=== PATIENT | female | born 1985 | race Caucasian/White ===

== ENCOUNTER → 2021-03-26 09:45 | Outpatient (BNVA) | payer OTHER, SELFPAY | PROVIDERS: PCP Nurse Practitioner; Visit Provider Obstetrics & Gynecology | DX: N89.8 Other specified noninflammatory disorders of vagina (principal); Z30.9 Encounter for contraceptive management, unspecified; Z30.432 Encounter for removal of intrauterine contraceptive device | CPT/HCPCS: 87070; 87205; 87481; 87512; 87798; 87799 ==

== ENCOUNTER → 2021-10-25 13:36 | Outpatient (BNVA) | payer OTHER, SELFPAY | PROVIDERS: PCP Nurse Practitioner; Visit Provider Obstetrics & Gynecology | DX: Z34.90 Encounter for supervision of normal pregnancy, unspecified, unspecified trimester (principal) | CPT/HCPCS: 80307; 84315; 87086 ==

== ENCOUNTER 2022-07-31 08:22 | Outpatient (CLI) | payer OTHER, SELFPAY ==
--- NOTE | 2022-07-31 08:35 | MR_ITS ---
WS: [id number] MRI LUMBAR SPINE NONCONTRAST TECHNIQUE: Sagittal T1, T2 and STIR imaging. Axial T1 and T2 imaging. CLINICAL INFORMATION: LOW BACK PAIN COMPARISON: None. FINDINGS: Straightening of the normal cervical lordosis. Small central protrusion C5-C6 with slight contact of the cervical cord on the certified addiction counselor imaging. L1-L2: Normal. L2-L3: Normal. L3-L4: No significant disc bulging. Mild facet arthropathy. Spinal canal and foramen are patent. L4-L5: Mild annular bulging. Mild facet arthropathy. Eccentric disc bulging L4-L5 with slight contact of the exiting L4 nerve roots. Mild bilateral foraminal narrowing. Mild facet arthropathy. L5-S1: Mi ld annular bulging with tiny shallow central protrusion. Slight effacement of ventral thecal sac. Spi nal canal and foramen are patent. Mild facet arthropathy. Visualized pelvic bony structures: Normal. Paravertebral soft tissues: Normal. MR/MR lumbar spine wo con* [id number] IMPRESSION: 1. Mild lumbar curve. No acute compression. No high-grade central canal stenos is. 2. Mild eccentric disc bulging L4-L5 with osteophytic ridging slightly contact s the exiting L4 nerve roots bilaterally with mild bilateral foraminal narrowin g. 3. Mild annular bulging L5-S1 with a tiny shallow central protrusion. Spinal c anal and foramen are patent. 4. Mild facet arthropathy L4-L5 and L5-S1. 5. Small central disc protrusion on the cervical spine certified addiction counselor imaging at C5-C6.
== END 2022-07-31 08:23 | disposition home or self-care (01) ==
PROVIDERS: PCP Nurse Practitioner; Visit Provider Nurse Practitioner
DX: M51.26 Other intervertebral disc displacement, lumbar region (principal); M47.816 Spondylosis without myelopathy or radiculopathy, lumbar region; M47.817 Spondylosis without myelopathy or radiculopathy, lumbosacral region; M50.222 Other cervical disc displacement at C5-C6 level
CPT/HCPCS: 72148

== ENCOUNTER → 2022-08-01 09:15 | Outpatient (BNVA) | payer OTHER, SELFPAY | PROVIDERS: PCP Nurse Practitioner; Visit Provider Obstetrics & Gynecology | DX: Z01.419 Encounter for gynecological examination (general) (routine) without abnormal findings (principal) | CPT/HCPCS: 87624 ==

== ENCOUNTER → 2022-08-11 12:25 | Outpatient (BNVA) | payer SELFPAY | PROVIDERS: PCP Nurse Practitioner; Visit Provider Obstetrics & Gynecology | DX: R10.2 Pelvic and perineal pain (principal) | CPT/HCPCS: 76830 ==

== ENCOUNTER 2022-09-16 09:48 | Observation (INO) | payer OTHER, SELFPAY ==
[2022-09-15 13:48] VITALS: BMI 25.0
[2022-09-16] VITALS (25 sets, daily range): BP systolic 104–129; BP diastolic 63–87; PULSE 62–104; RESP 13–23; TEMP 36.6–37.1; O2SAT 96–100
--- NOTE | 2022-09-16 06:51 | ANES.PREANE2 ---
Pre-Anesthetic Assessment Height/Weight: Height 1.65 m Weight 68.039 kg Temp Pulse Resp BP Pulse Ox O2 Del Method 98.7 F 78 18 104/66 100 09/16/22 06:15 09/16/22 06:15 09/16/22 06:15 09/16/22 06:15 09/16/22 06:15 09/16/22 06:15 Preop Diagnosis: pelvic pain, uterine prolapse Operation Date: 09/16/22 07:00 Proposed Procedures p Laparoscopic assisted vaginal hysterectomy, possible bilateral salpingo-oophorectomy 81584,N81.4,N80.9,R10.2(Not Applicable) - Alena Jackson MD s Laparoscopic Salpingo Oophorectomy(Bilateral) - Alena Jackson MD Familial anesthetic complications: None Was Beta Jovan taken within 24 hours: N/A Was Clonidine taken within 24 hours: N/A Last intake: Intake Last Liquid Date 09/16/22 Last Liquid Time 23:00 Last Solid Date 09/15/22 Last Solid Time 20:00 Social Tobacco and No alcohol Exam alert, oriented x 3, clear to auscultation bilaterally and regular rate & rhythm Airway Mallampati: Class II Dentition: full Musc/skel neck pain d/t disc issues - some UE numbness and tingling, started pregabalin Neuropsych Neuropathy Anesthetic Plan ASA status: 2 Risk of > 500 ml blood loss (7ml/kg in children): No Medications/Allergies Home Medications Medication Instructions Recorded Confirmed Last Taken Type trazodone 100 mg tablet 100 mg PO DAILY PRN Sleep 02/11/21 09/15/22 Unknown History melatonin 10 mg capsule 10 mg PO .h.s. 10/25/21 09/16/22 09/15/22 23:15 History pregabalin 75 mg capsule 75 mg PO BID 09/10/22 09/16/22 09/15/22 23:15 History Allergies Allergy/AdvReac Type Severity Reaction Status Date / Time haloperidol Allergy Unknown Verified 09/16/22 06:12 Penicillins Allergy Unknown Verified 09/16/22 06:12 [facility] Anesthesia Medical History Anxiety disorder Borderline personality disorder Bulging of cervical intervertebral disc Cervicalgia Depression Dysmenorrhea Insomnia Low back pain Migraine Nonscarring hair loss Post traumatic stress disorder (PTSD) Surgical History H/O adenoidectomy Hx of tonsillectomy Family History Sister Eating disorder bulimia Ovarian cyst Grandfather Cancer Maternal-- unsure but it spread throughout entire body Diabetes Maternal Brother Hypertension Mother Thyroid disease hypothyroidism Endometriosis Endometrial tumor Denies family history of CAD (coronary artery disease) Clotting disorder Heart disease Hyperlipidemia Chronic kidney disease (CKD) Anesthesia complication Bleeding disorder Stroke Social History Smoking and tobacco status: current every day smoker (1/2ppd) e-cigarettes E-Cigarette Details: vaporizer device and with nicotine Alcohol intake: never Data Anesthesia Cardiac Studies: No Data to Display
[2022-09-16] MEDS: gabapentin 300 mg Capsule PO (06:56)
[2022-09-16] MEDS: CELEcoxib 200 mg Capsule 400 MG PO (06:57)
[2022-09-16] MEDS: phenazopyridine 100 mg Tablet 200 MG PO (06:57)
--- NOTE | 2022-09-16 06:58 | W.PM.OPSUD ---
Surgery/Procedure H&P Update DATE OF PROCEDURE: September 16, 2022 DATE H&P PERFORMED: 09/10/22 H&P UPDATE INFORMATION: I have reviewed H&P completed within last 30 days, I have examined patient prior to procedure and No changes to prior documentation CHANGES TO PREVIOUS DOCUMENTATION: I have spoken with the patient and she desires to have both tubes and ovaries out. PREOP DIAGNOSIS: pelvic pain, uterine prolapse PLANNED PROCEDURE: Operation Date: 09/16/22 07:00 Proposed Procedures p Laparoscopic assisted vaginal hysterectomy, possible bilateral salpingo-oophorectomy 10554,N81.4,N80.9,R10.2(Not Applicable) - Alena Jackson MD s Laparoscopic Salpingo Oophorectomy(Bilateral) - Alena Jackson MD Related Problem List Diagnoses (1) Transfusion of blood product refused for jehovah's witness reason: (2) Pelvic pain: (3) Uterine prolapse:
[2022-09-16 07:01] LABS: Basophils # 0.1 10^3/uL (0.0-0.1); Basophils % 1.1 %; Eosinophils # 0.4 10^3/uL (0.0-0.8); Eosinophils % 5.2 %; Hematocrit 42.8 % (37.0-47.0); Hemoglobin 14.3 g/dL (11.5-15.3); Lymphocytes # 1.9 10^3/uL (0.8-4.8); Lymphocytes % 22.8 %; Mean Corpuscular HGB Conc 33.4 g/dL (30.0-36.0); Mean Corpuscular Hemoglobin 31.6 pg (28.0-34.0); Mean Corpuscular Volume 94.7 fl (81-99); Mean Platelet Volume 10.9 fL (7.4-10.4); Monocytes # 0.6 10^3/uL (0.2-0.9); Monocytes % 7.5 %; Neutrophils % 62.9 %; Nucleated Red Blood Cells % 0 %; Platelet Count 200 10^3/cmm (130-400); Red Blood Count 4.52 10^6/uL (4.1-5.3); Red Cell Distribution Width 12.7 % (12.1-15.1); White Blood Count 8.4 10^3/uL (4.0-10.0)
[2022-09-16] MEDS: acetaminophen 1,000 MG/100 ML PIGGYBACK 400 MG IV (07:04)
[2022-09-16] MEDS: scopolamine 1.5 Patch 1 PATCH TRANSDERMA (07:06)
[2022-09-16 07:08] LABS: OR HCG Qualitative Urine Negative (Negative)
[2022-09-16] MEDS: ceFAZolin 2,000 MG in sodium chloride 0.9% (plus) 50 ML 100 MG IV ×3 (07:13→22:53)
--- NOTE | 2022-09-16 07:46 | SUR.OPER ---
attempted to contact and notify him of surgical start
[2022-09-16] MEDS: vasopressin 20 unit/mL INJ INJECTION (07:52)
--- NOTE | 2022-09-16 09:18 | PM.OP ---
Operative Report Date of procedure: September 16, 2022 Pre-op diagnosis: Preop Diagnosis pelvic pain, uterine prolapse Post-op diagnosis: same Post-op findings: 9 week sized uterus, enlarged bilateral ovaries. R>L. Endometriosis present Procedure done: LAVH, BSO Specimens removed/disposition: uterus, tubes and ovaries to pathology Surgeon: Alena Jackson Anesthesia: General Estimated blood loss (mL): 50 IV fluids (mL): 1,500 Urine output (mL): 50 Complications: none Condition: stable Disposition: PACU Procedure: The patient was taken to the operating room where general anesthesia was administered and found to be adequate. She was prepped and draped in the normal sterile fashion in the dorsal lithotomy position in [facility]. A Navarro catheter was placed. A weighted speculum was placed into the vagina and the anterior lip of the cervix was grasped with a single tooth tenaculum. The Zumi uterine manipulator was placed. The weighted speculum was removed. The gloves were changed and attention was turned to the abdomen. A 5 mm supraumbilical incision was made. Using a 5 mm port with the camera, the port was placed into the abdomen. The abdomen was insufflated. Two low, lateral 5 mm ports were placed on the left and right under direct visualization from the camera. The right tube was grasped and elevated. Using the laparoscopic cautery, the infundibulopelvic ligament was cauterized inferior to the ovary and then continued inferior to the fallopian tube. This was performed the same way on the left. The uteroovarian ligaments as well as the round ligaments were ligated. Attention was then turned to the vaginal portion of the procedure. The weighted speculum was placed into the vagina. The zumi manipulator was removed. The single tooth tenaculum was removed and replaced with the dariela's tenaculum. 10 mL of dilute Pitressin was injected at the vesicovaginal junction. A circumferential incision was made at the vesicovaginal junction and the vaginal mucosa reflected cephalad. The posterior peritoneum was entered sharply with the Metzenbaum scissors and the long weighted speculum replaced. Using the Dafne clamps the uterosacral ligaments were clamped cut and suture-ligated. The anterior peritoneum was entered sharply with the metzenbaum scissors. Then sequentially the uterine arteries and cardinal ligaments were clamped cut and suture-ligated. A single-tooth tenaculum was used to deliver the uterus. The remaining segement of the utero-ovarian ligaments were clamped cut and suture-ligated bilaterally and the specimen was removed. There was good hemostasis with only mild bleeding from the cuff. The peritoneum was closed with a pursestring using 2-0 Vicryl. The vaginal cuff was closed with 0 Vicryl in a running locked pattern incorporating the uterosacral ligaments into the lateral aspects of the vaginal cuff. The Navarro catheter was removed and the cystoscope advanced into the bladder. The patient was given pyridium and bilateral spill was noted. There were no injuries or deficits noted in the bladder. The cystoscope was removed and the Navarro was replaced. Vaginal packing was placed for good hemostasis. The gloves and gowns were changed and attention was turned to the abdomen. The ports were closed with 2-0 monocryl with skin glue. The patient tolerated the procedure well. Sponge lap and needle counts were correct x3. She was taken to the recovery room in stable condition.
--- NOTE | 2022-09-16 09:28 | SUR.PHASEI ---
191 PT TO PACU 5 PT AWAKES TO VOICE BUT DOES NOT FOLLOW COMMANDS, PT REPOSTIONED SELF UP IN BED HOB AT 40 DEGREES GOOD RESP EFFORT ON RA
[2022-09-16] MEDS: HYDROmorphone 1 mg/mL INJ 1 mL 0.5 MG IVP (09:37)
--- NOTE | 2022-09-16 09:51 | SUR.PHASEI ---
0919 NOTE CONTINUED, PT MONITOR SR WITH NO ECTOPY NOTED IV TO RT HAND #20 WITH NS 350 ML UP AT KVO RATE PER GRAVITY, PT ABDOMEN SOFT TO PALPATION 3 SITES WITH SKIN GLUE , PT HAS VAGINAL PACKING AND ABHI PAD , PHILLIPS CATHETER , STATLOCK TO LT INNER THIGH WITH ORANGE URINE TO TUBING AND BAG APPROX 200 ML IN BAG NOT EMPTIED IN PACU. BILAT SCDS ON, ID BRACELET TO LT WRIST, PT IDENTIFIED WITH 2 IDENTIFIERS PT SATS ON RA 99% WITH NO DISTRESS.
--- NOTE | 2022-09-16 09:56 | SUR.PHASEI ---
0937 PT AWAKES AND LUIS ANTONIO OUT WITH PAIN PT STATES (IT HURTS , IT HURTS) SEE PAIN MED GIVEN PER DR QUIROS ORDERS TO GIVE DILAUDID FOR PAIN IN PACU PER PROTOCOL, DR BUSCH AT BEDSIDE PT SHOWN HER UTERUS AND OVARIES FROM SPECIMEN BUCKET PER DR MACKAY.
--- NOTE | 2022-09-16 09:58 | SUR.PHASEI ---
ABOVE ENTRY CORRECTION, SHOWN TO PT BY DR MACKAY
--- NOTE | 2022-09-16 10:44 | SUR.PHASEI ---
PT TO OB PER CART , PT MOVES SELF TO BED AWAKE ALERT TALKATIVE TO NURSE, HANDOFF AT BEDSIDE WITH OB RN. FAMILY UPDATED AND WAITING IN WAITING ROOM.
[2022-09-16] MEDS: dextrose 5%-lactated ringers 1,000 ML 125 ML IV ×2 (10:48→19:25)
[2022-09-16] MEDS: ketorolac 30 mg/mL INJ IVP ×3 (10:49→21:49)
[2022-09-16] MEDS: HYDROcodone-acetaminophen 5-325 mg Tablet PO ×3 (10:49→23:48)
[2022-09-16] MEDS: nicotine 14 mg Patch 1 PATCH TRANSDERMA (11:22)
[2022-09-16] MEDS: HYDROmorphone 1 mg/mL INJ 1 mL 1.5 MG IVP ×2 (12:56→17:48)
--- NOTE | 2022-09-16 13:15 | ANE.PACU2 ---
Inpatient post-anesthesia follow up: Airway intact: Yes Vital signs: Temperature 97.9 F Pulse Rate 89 Respiratory Rate 20 Blood Pressure 118/82 Pulse Oximetry 98 Oxygen Delivery Me thod Room Air Oxygen Flow Rate Fraction of Inspir ed Oxygen Hydration adequate: Yes Nausea and vomiting: No Pain level: 1 Mental status: Baseline
[2022-09-16] MEDS: ondansetron 2 mg/ML SDV 2 mL 4 MG IVP (13:24)
[2022-09-16 16:17] LABS: Anion Gap 14.4 (5-19); Blood Urea Nitrogen 10 mg/dL (6-20); Calcium 8.4 mg/dL (8.5-10.5); Carbon Dioxide 20 mmol/L (22-29); Chloride 108 mmol/L (98-107); Glomerular Filtration Rate 94.7 mL/min (90-130); Glucose 172 mg/dL (65-115); Osmolality Calculated 289 mOsm/kg (285-295); Potassium 4.4 mmol/L (3.5-5.1); Sodium 138 mmol/L (136-145)
[2022-09-16] MEDS: docusate sodium 100 mg Capsule PO (17:47)
[2022-09-16] MEDS: pregabalin 75 mg Capsule PO (19:25)
[2022-09-16] MEDS: trazodone 100 mg Tablet PO (23:41)
[2022-09-17] MEDS: dextrose 5%-lactated ringers 1,000 ML 125 ML IV (03:48)
[2022-09-17] MEDS: ketorolac 30 mg/mL INJ IVP (03:49)
--- NOTE | 2022-09-17 05:34 | PC.NURSE ---
Vaginal Packing out @0530 on 09/17/2022 with scant amount of blood.
[2022-09-17] MEDS: HYDROcodone-acetaminophen 5-325 mg Tablet PO (05:35)
[2022-09-17 05:48] VITALS: BP 82/51; PULSE 65; RESP 15; TEMP 36.8; O2SAT 99
[2022-09-17 05:53] LABS: Hematocrit 32.5 % (37.0-47.0); Mean Corpuscular HGB Conc 33.8 g/dL (30.0-36.0); Mean Corpuscular Hemoglobin 32.4 pg (28.0-34.0); Mean Corpuscular Volume 95.9 fl (81-99); Mean Platelet Volume 10.5 fL (7.4-10.4); Platelet Count 191 10^3/cmm (130-400); Red Blood Count 3.39 10^6/uL (4.1-5.3); Red Cell Distribution Width 12.7 % (12.1-15.1); White Blood Count 12.9 10^3/uL (4.0-10.0)
[2022-09-17 06:13] VITALS: BP 84/50
[2022-09-17 06:45] VITALS: BP 85/49
[2022-09-17] MEDS: docusate sodium 100 mg Capsule PO (08:28)
[2022-09-17] MEDS: pregabalin 75 mg Capsule PO (08:28)
[2022-09-17] MEDS: ibuprofen 800 mg tablet PO (08:33)
--- NOTE | 2022-09-17 09:14 | P.DS_ITS ---
Discharge Providers Date of Admission: 09/16/22 09:48 Date of Discharge: September 17, 2022 Attending Provider at Admission: Alena Jackson MD Attending Provider at Discharge: Alena Jackson MD Primary Care Provider: ZURI Paniagua Diagnoses at Discharge Discharge Diagnosis (1) Transfusion of blood product refused for pentecostal reason: Status: Acute (2) Pelvic pain: Status: Acute (3) Uterine prolapse: Status: Acute Reason for Visit Reason for Visit: N81.4, N80.9, R10.2 Hospital Course Hospital Course The patient was admitted for surgery. She did well postoperatively and was ready for discharge on day #1 Physical Exam Narrative: The patient is doing well this morning. Having a little gas pain, but overall, doing well. Const: COMMON NORMALS: no acute distress, average body habitus, patient orie nted x3, no limitations, healthy appearing, alert and well nourished GENERAL APPEARANCE: cooperative, comfortable, well kempt and well developed ORIENTATION/CONSCIOUSNESS: Yes awake, Yes oriented to person, Yes oriented to place and Yes oriented to time Resp: COMMON NORMALS: normal respiratory effort EFFORT & INSPECTION: Yes able to speak in complete sentences GI: COMMON NORMALS: Soft to palpation and non-tender PALPATION: Yes Soft to palpation Extremity: COMMON NORMALS: no calf tenderness Neuro: COMMON NORMALS: patient oriented x3 SENSORIUM/ORIENTATION: Yes alert, Yes oriented to person, Yes oriented to place and Yes oriented to time Psych: APPEARANCE: Yes well kempt Urinary Catheter Management: Navarro: Cath Placed During This Visit: yes, but has since been removed by the nurse Reason for Continuing Indwelling Catheter: Decision to DC Catheter Urinary Catheter Date of Insertion: 09/16/22 Urinary Catheter Time of Insertion: 07:45 Date Urinary Catheter Removed: 09/17/22 Time Urinary Catheter Discontinued: 05:30 Discharge Data Studies Completed and Pending Pending at discharge Category Date Time Status Urine Culture Routine Lab 09/16/22 07:42 Received Pathology: Surgical [PTH] Routine Pth 09/16/22 08:46 Received Laboratory Results WBC 12.9 10^3/uL (4.0-10.0) H 09/17/22 05:30 RBC 3.39 10^6/uL (4.1-5.3) L 09/17/22 05:30 Hgb 11.0 g/dL (11.5-15.3) L 09/17/22 05:30 Hct 32.5 % (37.0-47.0) L 09/17/22 05:30 MCV 95.9 fl (81-99) 09/17/22 05:30 MCH 32.4 pg (28.0-34.0) 09/17/22 05:30 MCHC 33.8 g/dL (30.0-36.0) 09/17/22 05:30 RDW 12.7 % (12.1-15.1) 09/17/22 05:30 Plt Count 191 10^3/cmm (130-400) 09/17/22 05:30 MPV 10.5 fL (7.4-10.4) H 09/17/22 05:30 Neut % (Auto) 62.9 % 09/16/22 06:40 Lymph % (Auto) 22.8 % 09/16/22 06:40 [place] % (Auto) 7.5 % 09/16/22 06:40 Eos % (Auto) 5.2 % 09/16/22 06:40 Baso % (Auto) 1.1 % 09/16/22 06:40 Neut # (Auto) 5.30 10^3/uL (1.8-7.7) 09/16/22 06:40 Lymph # (Auto) 1.9 10^3/uL (0.8-4.8) 09/16/22 06:40 [place] # (Auto) 0.6 10^3/uL (0.2-0.9) 09/16/22 06:40 Eos # (Auto) 0.4 10^3/uL (0.0-0.8) 09/16/22 06:40 Baso # (Auto) 0.1 10^3/uL (0.0-0.1) 09/16/22 06:40 Nucleated RBC % (auto) 0 % 09/16/22 06:40 Nucleated RBCs # 0.0 /100WBC 09/16/22 06:40 Sodium 138 mmol/L (136-145) 09/16/22 13:47 Potassium 4.4 mmol/L (3.5-5.1) 09/16/22 13:47 Chloride 108 mmol/L (98-107) H 09/16/22 13:47 Carbon Dioxide 20 mmol/L (22-29) L 09/16/22 13:47 Anion Gap 14.4 (5-19) 09/16/22 13:47 BUN 10 mg/dL (6-20) 09/16/22 13:47 Creatinine 0.7 mg/dL (0.5-0.9) 09/16/22 13:47 GFR Calculation 94.7 mL/min (90-130) 09/16/22 13:47 Glucose 172 mg/dL (65-115) H 09/16/22 13:47 Calculated Osmolality 289 mOsm/kg (285-295) 09/16/22 13:47 Calcium 8.4 mg/dL (8.5-10.5) L 09/16/22 13:47 Urine HCG, Qual Negative (Negative) 09/16/22 07:07 Blood Type A Positive 09/16/22 07:22 Rho(D) Type Positive 09/16/22 07:22 Antibody Screen Negative 09/16/22 07:22 Vitals Last Vital Signs Temp 98.2 F 09/17/22 05:48 Pulse 65 09/17/22 05:48 Resp 15 09/17/22 05:48 BP 85/49 09/17/22 06:45 Pulse Ox 99 09/17/22 05:48 O2 Del Method 09/17/22 05:48 Discharge Plan Discharge Patient Disposition: Home Condition: Stable Prescriptions: New ibuprofen 800 mg Tablet 800 mg PO Q8H Qty: 30 0RF hydrocodone-acetaminophen 5-325 mg Tablet 1 tab PO Q4H PRN (Reason: Moderate To Severe Pain) Qty: 30 0RF docusate sodium 100 mg Capsule 100 mg PO BID Qty: 60 0RF Continued melatonin 10 mg capsule 10 mg PO .h.s. trazodone 100 mg tablet 100 mg PO DAILY PRN (Reason: Sleep) Rx Instructions: Take one half to one tablet by mouth at bedtime for mood or sleep. pregabalin 75 mg capsule 75 mg PO BID Discharge Orders: Discharge Order (Routine); Ordered 09/17/22 Ordered By: Alena Jackson Referrals: Alena Jackson MD [Physician] - 09/22/22 1:30 pm (Your [address] appointment [address] Dr. Jackson is Thursday October 27, 2022 at 4:00 p.m.) Patient Instructions: Cystoscopy, Hydrocodone/Acetaminophen (By mouth), Ibuprofen (By mouth), Laxative, Stool Softeners (By mouth), Salpingo- Oophorectomy (DC), Laparoscopic Hysterectomy (DC), OB Food/Drug Interaction Guide, Opioid Safety Activity Restrictions/Additional Instructions: Pelvic rest for 6 weeks No lifting anything over 5 pounds No driving until cleared by Dr. Jackson. Monitor for signs of infection: fever greater than 100.4 F, chills, foul smelling vaginal discharge or drainage from incision sites. Notify Dr. Jackson immediately. Monitor vaginal bleeding. Should expect spotting or light period. If bleeding heavily and passing clots, seek medical attention immediately. Seek medical attention for chest pain, shortness of breath, or painful swollen calf muscles. Discharge Attestations Time Spent in Discharge Care*: less than 30 min Quality Metrics Clinical Quality Measures [ No reported AMI, CVA or VTE this stay] Coding Level of Care Code Acute Chg FW DC note Diagnoses Transfusion of blood product refused for pentecostal reason Z53.1 Pelvic pain R10.2 Uterine prolapse N81.4
[2022-09-17 10:24] VITALS: BP 97/54; PULSE 69; RESP 16; TEMP 36.7; O2SAT 99
== END 2022-09-17 10:30 | disposition home or self-care (01) ==
LOC: OBGYN 09:48
PROVIDERS: Anesthesiology; Admitting Provider Obstetrics & Gynecology; PCP Nurse Practitioner; Visit Provider Obstetrics & Gynecology
PROC: 0UT9FZZ Resection of Uterus, Via Natural or Artificial Opening With Percutaneous Endoscopic Assistance (ICD-10-PCS; CPT 58552; principal; 2022-09-16 07:00)
PROC: (CPT 58661; 2022-09-16 07:00)
PROC: 0TJB8ZZ Inspection of Bladder, Via Natural or Artificial Opening Endoscopic (ICD-10-PCS; CPT 52000; 2022-09-16 07:00)
DX: N81.4 Uterovaginal prolapse, unspecified (principal); F17.290 Nicotine dependence, other tobacco product, uncomplicated; F41.9 Anxiety disorder, unspecified; F32.A Depression, unspecified
CPT/HCPCS: 58552; 36415; 80048; 81025; 84703; 85025; 85027; 86850; 86900; 87086; 88305; 96374; 96376; G0378; J0131; J0690; J1100; J1170; J1200; J1885; J2250; J2370; J2405; J2704; J2710; J3010; J3490; J7121

== ENCOUNTER 2022-09-22 23:29 | Emergency (ER) | payer OTHER, SELFPAY ==
--- NOTE | 2022-09-22 23:30 | XRR_ITS ---
PROCEDURE INFORMATION: Exam: XR Abdomen Exam date and time: 09/23/2022 12:46 AM Age: 37 years old Clinical indication: Constipation; Prior surgery; Surgery date: 3-7 days post-operative; Surgery type: Full hysterectomy seven days ago. Patient HX: C/O abd pain with no bm since hysterectomy seven days ago. TECHNIQUE: Imaging protocol: Radiologic exam of the abdomen. Views: Frontal supine view of the abdomen. 1 View. COMPARISON: MR lumbar spine wo con* [id number] 07/31/2022 9:14 AM FINDINGS: Gastrointestinal tract: There is a probable fecal impaction in the rectum with large stool throughout the colon consistent with constipation. Bones/joints: Unremarkable. XR/XR KUB [id number] IMPRESSION: Fecal impaction in the rectum with more proximal constipation.
[2022-09-22 23:35] VITALS: BP 138/88; PULSE 97; RESP 18; TEMP 36.9; O2SAT 98; BMI 26.3
[2022-09-23] VITALS (7 sets, daily range): BP systolic 105–127; BP diastolic 71–82; PULSE 76–90; RESP 16–24; O2SAT 100
[2022-09-23 00:01] LABS: Basophils # 0.1 10^3/uL (0.0-0.1); Basophils % 1.1 %; Eosinophils # 0.4 10^3/uL (0.0-0.8); Eosinophils % 5.3 %; Hematocrit 41.1 % (37.0-47.0); Hemoglobin 13.2 g/dL (11.5-15.3); Lymphocytes # 2.3 10^3/uL (0.8-4.8); Lymphocytes % 28.2 %; Mean Corpuscular HGB Conc 32.1 g/dL (30.0-36.0); Mean Corpuscular Hemoglobin 31.4 pg (28.0-34.0); Mean Corpuscular Volume 97.9 fl (81-99); Mean Platelet Volume 9.9 fL (7.4-10.4); Monocytes # 0.6 10^3/uL (0.2-0.9); Monocytes % 7.2 %; Neutrophils # 4.66 10^3/uL (1.8-7.7); Neutrophils % 57.8 %; Nucleated Red Blood Cells % 0 %; Platelet Count 263 10^3/cmm (130-400); Red Cell Distribution Width 12.9 % (12.1-15.1); White Blood Count 8.1 10^3/uL (4.0-10.0)
--- NOTE | 2022-09-23 00:14 | W.ED.ABDPA2 ---
HPI - Abdominal Pain General: Chief Complaint: Abdominal Pain Stated Complaint: no bm x 7 days post surgery Time Seen by Provider: 09/22/22 23:43 Source: patient Mode of arrival: ambulatory Limitations: no limitations History of Present Illness: 37-year-old female states that she has had abdominal last 8 days she had a hysterectomy 7 days ago and states that she has not been able to have a bowel movement. States she is been taking some MiraLAX she is having pain at her rectum she states when she tries to go. She is having some abdominal pain as well she denies any vomiting she denies any worsening improving factors. Associated Symptoms: Denies chills, diarrhea, dysuria, fever(s), nausea and vomiting Review of Systems Const: Denies: fever(s), chills, body aches or change in appetite Eyes: Denies: blurry vision or eye discomfort ENMT: Denies: throat pain or dental pain Card: Denies: chest pain Resp: Denies: dyspnea GI: Denies: abdominal pain, nausea, vomiting or diarrhea : Denies: dysuria Musc: Denies: neck pain or back pain Skin/Breast: Denies: rash Neuro: Denies: headache(s) Psych: Denies: depression [place]/Lymph: Denies: easy bruising All/Imm: Denies: urticaria PFSH ED PFSH: Medical History Anxiety disorder Borderline personality disorder Bulging of cervical intervertebral disc Cervicalgia Depression Dysmenorrhea Insomnia Low back pain Migraine Nonscarring hair loss Pelvic pain Post traumatic stress disorder (PTSD) Uterine prolapse Surgical History H/O adenoidectomy Hx of tonsillectomy Family History Sister Eating disorder bulimia Ovarian cyst Grandfather Cancer Maternal-- unsure but it spread throughout entire body Diabetes Maternal Brother Hypertension Mother Thyroid disease hypothyroidism Endometriosis Endometrial tumor Denies family history of CAD (coronary artery disease) Clotting disorder Heart disease Hyperlipidemia Chronic kidney disease (CKD) Anesthesia complication Bleeding disorder Stroke Social History Smoking and tobacco status: current every day smoker (1/2ppd) e-cigarettes E-Cigarette Details: vaporizer device and with nicotine Alcohol intake: never Physical Exam Const: COMMON NORMALS: no acute distress, patient oriented x3 and healthy appearing HENMT: COMMON NORMALS: normocephalic and atraumatic HEAD & SCALP: normocephalic and atraumatic Eye: COMMON NORMALS: Equal, round and reactive pupils present and EOMs intact bilaterally PUPIL: Yes Equal, round and reactive pupils present Neck/C-Spine: COMMON NORMALS: full ROM and supple Chest: COMMONS NORMALS: normal inspection of the chest and normal palpation of entire chest wall Resp: COMMON NORMALS: normal respiratory effort, No retractions, No use of accessory muscles and clear to auscultation bilaterally AUSCULTATION: clear to auscultation bilaterally Cardio: COMMON NORMALS: regular rate, regular rhythm and No murmurs present (Cardio) RATE: regular rate RHYTHM: regular rhythm GI: COMMON NORMALS: Normal to inspection, nondistended, normoactive bowel sounds present, Soft to palpation, non-tender and no masses PALPATION: Yes Soft to palpation OTHER: rectal excam normal Extremity: COMMON NORMALS: normal to inspection and full ROM Neuro: COMMON NORMALS: patient oriented x3, moves all extremities and no focal motor deficits Psych: COMMON NORMALS: mental status grossly normal, Normal thought process present and cooperative THOUGHT PROCESS: Normal thought process present Skin: COMMON NORMALS: no rashes or lesions noted and no wounds GENERAL SKIN EXAM: no rashes or lesions noted Procedures Procedural Sedation Indication: other (disimpaction) ASA Class: I Time of Last PO Intake: 20:00 Preparation: nca certified concierge applied and pulse oximeter IV Propofol dose (mg): 100 Patient Tolerated Procedure: well Complications: none Interventions: oxygen applied Rectal Disimpaction Time out performed rectal disimpaction: Yes Indication: fecal impaction Procedural Sedation: Yes Technique: manual disimpaction with gloved finger Result: significant stool output Patient Tolerated Procedure: well Complications: none Course Vital Signs: Vital signs: Vital Signs Temperature 98.4 F 09/22/22 23:35 Pulse Rate 82 09/23/22 02:55 Respiratory Rate 17 09/23/22 02:55 Blood Pressure 111/76 09/23/22 02:55 Pulse Oximetry 98 09/22/22 23:35 Oxygen Delivery Mi thod 09/23/22 02:45 MDM - Abdominal Pain Medical Decision Making Patient presents with constipation was able to manually disimpact under sedation she is able to have a bowel movement she is stable for discharge. Lab Data : 09/22/22 23:55 09/22/22 23:55 Labs/Radiology: Radiology Impressions KUB X-Ray 09/22/22 23:30 IMPRESSION: Fecal impaction in the rectum with more proximal constipation. Laboratory Results WBC 8.1 10^3/uL (4.0-10.0) 09/22/22 23:55 RBC 4.20 10^6/uL (4.1-5.3) 09/22/22 23:55 Hgb 13.2 g/dL (11.5-15.3) 09/22/22 23:55 Hct 41.1 % (37.0-47.0) 09/22/22 23:55 MCV 97.9 fl (81-99) 09/22/22 23:55 MCH 31.4 pg (28.0-34.0) 09/22/22 23:55 MCHC 32.1 g/dL (30.0-36.0) 09/22/22 23:55 RDW 12.9 % (12.1-15.1) 09/22/22 23:55 Plt Count 263 10^3/cmm (130-400) 09/22/22 23:55 MPV 9.9 fL (7.4-10.4) 09/22/22 23:55 Neut % (Auto) 57.8 % 09/22/22 23:55 Lymph % (Auto) 28.2 % 09/22/22 23:55 [place] % (Auto) 7.2 % 09/22/22 23:55 Eos % (Auto) 5.3 % 09/22/22 23:55 Baso % (Auto) 1.1 % 09/22/22 23:55 Neut # (Auto) 4.66 10^3/uL (1.8-7.7) 09/22/22 23:55 Lymph # (Auto) 2.3 10^3/uL (0.8-4.8) 09/22/22 23:55 [place] # (Auto) 0.6 10^3/uL (0.2-0.9) 09/22/22 23:55 Eos # (Auto) 0.4 10^3/uL (0.0-0.8) 09/22/22 23:55 Baso # (Auto) 0.1 10^3/uL (0.0-0.1) 09/22/22 23:55 Nucleated RBC % (auto) 0 % 09/22/22 23:55 Nucleated RBCs # 0.0 /100WBC 09/22/22 23:55 Sodium 138 mmol/L (136-145) 09/22/22 23:55 Potassium 3.8 mmol/L (3.5-5.1) 09/22/22 23:55 Chloride 103 mmol/L (98-107) 09/22/22 23:55 Carbon Dioxide 25 mmol/L (22-29) 09/22/22 23:55 Anion Gap 13.8 (5-19) 09/22/22 23:55 BUN 17 mg/dL (6-20) 09/22/22 23:55 Creatinine 0.9 mg/dL (0.5-0.9) 09/22/22 23:55 GFR Calculation 70.8 mL/min (90-130) L 09/22/22 23:55 Glucose 116 mg/dL (65-115) H 09/22/22 23:55 Calculated Osmolality 289 mOsm/kg (285-295) 09/22/22 23:55 Calcium 9.1 mg/dL (8.5-10.5) 09/22/22 23:55 Total Bilirubin 0.2 mg/dL (0.15-1.2) 09/22/22 23:55 AST 42 U/L (0-32) H 09/22/22 23:55 ALT 61 U/L (0-33) H 09/22/22 23:55 Alkaline Phosphatase 55 U/L (35-105) 09/22/22 23:55 Total Protein 6.9 g/dL (6.6-8.7) 09/22/22 23:55 Albumin 4.3 g/dL (3.5-5.2) 09/22/22 23:55 Globulin 2.6 g/dL (1.3-4.6) 09/22/22 23:55 Discharge Plan Discharge Patient Disposition: Home Clinical Impression: Constipation Qualifiers: Constipation type: unspecified constipation type Qualified Code(s): K59.00 - Constipation, unspecified Condition: Stable Prescriptions: No Action melatonin 10 mg capsule 10 mg PO .h.s. trazodone 100 mg tablet 100 mg PO DAILY PRN (Reason: Sleep) Rx Instructions: Take one half to one tablet by mouth at bedtime for mood or sleep. pregabalin 75 mg capsule 75 mg PO BID ibuprofen 800 mg Tablet 800 mg PO Q8H Qty: 30 0RF hydrocodone-acetaminophen 5-325 mg Tablet 1 tab PO Q4H PRN (Reason: Moderate To Severe Pain) Qty: 30 0RF docusate sodium 100 mg Capsule 100 mg PO BID Qty: 60 0RF Discharge Orders: Discharge ED (Routine); Ordered 09/23/22 Ordered By: Eloy French Referrals: Alicja Romero FNP [Primary Care Provider] - Discharge Diet: Advance as tolerated Discharge Activity: Resume usual activity Patient Instructions: Constipation (ED) Coding Level of Care Code ED Associate Sales Representative for [employer] Fwd Exam Comprehensive
[2022-09-23 00:23] LABS: Alanine Aminotransferase 61 U/L (0-33); Albumin Level 4.3 g/dL (3.5-5.2); Alkaline Phosphatase 55 U/L (35-105); Anion Gap 13.8 (5-19); Aspartate Amino Transferase 42 U/L (0-32); Blood Urea Nitrogen 17 mg/dL (6-20); Calcium 9.1 mg/dL (8.5-10.5); Carbon Dioxide 25 mmol/L (22-29); Chloride 103 mmol/L (98-107); Globulin 2.6 g/dL (1.3-4.6); Glomerular Filtration Rate 70.8 mL/min (90-130); Glucose 116 mg/dL (65-115); Osmolality Calculated 289 mOsm/kg (285-295); Potassium 3.8 mmol/L (3.5-5.1); Sodium 138 mmol/L (136-145); Total Bilirubin 0.2 mg/dL (0.15-1.2); Total Protein 6.9 g/dL (6.6-8.7)
[2022-09-23] MEDS: lactulose oral liq 20 gm/30 mL UDC 30 GM PO (00:25)
[2022-09-23] MEDS: glycerin adult supp 1 EACH PR (00:38)
[2022-09-23] MEDS: midazolam 1 mg/mL INJ 2 mL 2 MG IVP (02:19)
[2022-09-23] MEDS: propofol 10 mg/mL SDV 20 mL 100 MG IVP (02:46)
--- NOTE | 2022-09-23 03:20 | PC.NURSE ---
Pt awake, alert and oriented at this time, ambulated to bathroom with spouse with minimal assistance.
--- NOTE | 2022-09-23 03:38 | PC.NURSE ---
pt returned to room from bathroom.
== END 2022-09-23 04:00 | disposition home or self-care (01) ==
PROVIDERS: Emergency Provider Emergency Medicine; PCP Nurse Practitioner
DX: K59.00 Constipation, unspecified (principal); F17.290 Nicotine dependence, other tobacco product, uncomplicated
CPT/HCPCS: 74018; 80053; 85025; 99285; J2250; J2704